=== PATIENT | male | born 1985 | race Caucasian/White ===

== ENCOUNTER 2018-06-22 16:46 | Emergency (ER) | payer OTHER ==
[2018-06-22] MEDS ORDERED: CEPHALEXIN 500 MG CAP PO ONE (17:22)
--- NOTE | 2018-06-22 17:24 | EDPHY ---
H & P Smoking Status: Former smoker Time Seen by Provider: 06/22/18 17:06 HPI/ROS: CHIEF COMPLAINT: Left thumb laceration HISTORY OF PRESENT ILLNESS: 32-year-old male [id number] up-to-date tetanus was chopping wood, accidentally impacted his left thumb with a hatchet sustaining laceration to his left thumb PHYSICAL EXAM (Prior to examination, patient consented to physical exam, hands were washed and my usual and customary physical exam procedures followed) 1) GENERAL: Well-developed, well-nourished, alert and oriented. Appears to be in no acute distress. 2) HEAD: Normocephalic 3) HEENT: sclera anicteric 4) LUNGS: Breathing comfortably. 5) SKIN: Left thumb longitudinally oriented 2.5 cm laceration 6) MUSCULOSKELETAL: Flexion extension at the MCP and IP intact , no deficits 7) NEUROLOGIC: Two-point discrimination intact, full sensation distally (Wendi,D Ina) Constitutional: Initial Vital Signs Temperature (C) 37.0 C 06/22/18 16:54 Heart Rate 86 06/22/18 16:54 Respiratory Rate 18 06/22/18 16:54 Blood Pressure 118/68 06/22/18 16:54 O2 Sat (%) 98 06/22/18 16:54 O2 Delivery Mode Room Air Allergies/Adverse Reactions: Sulfa (Sulfonamide Antibiotics) Allergy (Verified 06/22/18 16:54) Home Medications: Medication Instructions Recorded Cephalexin [Keflex] 500 mg PO TID 5 Days cap 06/22/18 MDM/Departure - MDM Procedures: Procedure: Laceration repair. I explained the indications, risks and benefits for both laceration repair and anesthetic administration. Verbal consent was obtained from the patient . The laceration on the left thumb was anesthetized using 0.5% bupivicaine without epinephrine digital nerve block. After anesthetic administered the patient was observed for a period of time and had no apparent adverse effects. The wound was cleaned, prepped, draped in normal sterile fashion and explored to its base. No foreign body seen, no foreign bodies palpated. There were no deep structures involved. No tendon injury was identified. The wound was closed with 6 simple interrupted 5 O Ethilon sutures. The wound repair was complex. Bulky immobilization dressing applied The procedure was performed by myself. Patient has been informed that scarring will occur, although efforts have been made to minimize this. (Lynne Adame) Medications Given: Discontinued Medications Cephalexin HCl (Keflex) 500 mg PO EDNOW ONE PRN Reason: Protocol Stop: 06/22/18 17:23 Last Admin: 06/22/18 17:31 Dose: 500 mg ED Course/Re-evaluation: I saw this patient independently based on established practice protocols. Care of patient under supervision of secondary supervising physician Dr Giuseppe Carl. X-ray was ordered on this patient evaluate possible osseous injury. He declines this. He has been informed the risks of declining this including, but not limited to, non diagnosis of open tuft fracture. His wound has been closed primarily in the ER, see procedure note. I am starting on prophylactic antibiotics. Sutures to be removed in 10 days. Recommend hand surgery follow-up in given this referral information. My usual and customary wound precautions and instructions provided. (Lynne Adame) I did not see this patient while he was in the emergency department. However his care was discussed with the PA while the patient was in the department. I agree with treatment plan and management (Giuseppe Carl) - Depart Disposition: Home, Routine, Self-Care Clinical Impression: Laceration of left thumb Condition: Good Instructions: Care For Your Stitches (ED), Laceration (ED) Additional Instructions: Return to the ER if you develop redness, swelling, discharge, warmth to the wound, red streaks going up your arm, or any other symptoms that concern you. Prescriptions: Cephalexin [Keflex] 500 mg PO TID 5 Days cap Referrals: Return, to the ER in 10 days for suture removal [Other] - As per Instructions Yeison Menjivar MD [Medical Doctor] - 5-7 days, call for appt. (Dr. Yeison Menjivar is a hand surgeon)
[2018-07-02 14:25] VITALS: BP 117/56
== END 2018-07-02 14:37 | disposition home or self-care (01) ==
PROC: 0HQGXZZ Repair Left Hand Skin, External Approach (ICD-10-PCS; principal; 2018-06-22)
DX: S61.012A Laceration without foreign body of left thumb without damage to nail, initial encounter (principal); W27.0XXA Contact with workbench tool, initial encounter; Y92.9 Unspecified place or not applicable

== ENCOUNTER → 2018-09-18 | Outpatient (CLI) | payer OTHER | LOC: FIMAGING 16:58 | PROVIDERS: ATTEND Nurse Practitioner Family | DX: J98.09 Other diseases of bronchus, not elsewhere classified (principal) ==